=== PATIENT | male | born 1980 | race Caucasian/White ===

== ENCOUNTER 2019-08-16 21:28 | Emergency (ER) | payer MEDICAID ==
[~2019-08-16] VITALS: Ht 177.8 cm; Wt 100.0 kg
[2019-08-16 21:33] VITALS: Ht 177.8 cm; Wt 100.0 kg
[2019-08-16] MEDS ORDERED: HYDROXYZINE (21:34)
[2019-08-16] MEDS ORDERED: ZOLOFT (21:34)
[2019-08-16 21:58] LABS: BASOPHILS 0.1 % (0-2); EOSINOPHILS 2.2 % (0-7); HEMATOCRIT 41.5 % (42.0-54.0); HEMOGLOBIN 14.1 g/dL (13.5-17.5); IMMATURE GRANULOCYTES 0.8 % (0-5); LYMPHOCYTES 32.6 % (15-50); MCH 32.3 pg (26.0-34.0); MEAN PLATELET VOLUME 8.5 fL (7.4-10.4); MONOCYTES 9.6 % (2-11); NEUTROPHILS 54.7 % (40-80); PLATELET COUNT 222 10x3/uL (130-400); RBC 4.37 10x6/uL (4.20-6.10); RDW 13.9 % (11.5-14.5); WBC 8.5 10x3/uL (4.8-10.8)
[2019-08-16 22:02] LABS: BILIRUBIN NEGATIVE (NEGATIVE); GLUCOSE NEGATIVE (NEGATIVE); KETONE NEGATIVE (NEGATIVE); NITRITE NEGATIVE (NEGATIVE); UROBILINOGEN NORMAL (NORMAL)
[2019-08-16 22:05] LABS: CALC OSMOLALITY 276 mosm/kg (275-300); CARBON DIOXIDE 26.2 mmol/L (21.0-32.0); CHLORIDE - SERUM 101 mmol/L (98-107); GLUCOSE 100 mg/dL (74-106); POTASSIUM - SERUM 3.4 mmol/L (3.5-5.1); SODIUM 138 mmol/L (136-145); UREA NITROGEN 16 mg/dL (7-18); eGFR NON AFRICAN AMERICAN 89 mL/min (90-120)
[2019-08-16 22:10] LABS: ALBUMIN 3.8 g/dL (3.4-5.0); ALKALINE PHOSPHATASE 76 U/L (30-120); ALT (SGPT) 36 U/L (10-68); BILIRUBIN - TOTAL 0.46 mg/dL (0.2-1.3); MAGNESIUM - SERUM 1.9 mg/dL (1.8-2.4); PROTEIN - SERUM 8.1 g/dL (6.4-8.2)
[2019-08-16 22:12] LABS: UDS - AMPHET NEGATIVE QUAL (NEGATIVE); UDS - BARB NEGATIVE QUAL (NEGATIVE); UDS - BENZO NEGATIVE QUAL (NEGATIVE); UDS - COCAINE NEGATIVE QUAL (NEGATIVE); UDS - OPIATE NEGATIVE QUAL (NEGATIVE); UDS - PCP NEGATIVE QUAL (NEGATIVE); UDS - THC NEGATIVE QUAL (NEGATIVE)
[2019-08-16] MEDS ORDERED: CYCLOBENZAPRINE10 MG PO (22:35)
[2019-08-16 22:47] VITALS: BP 127/83
== END 2019-08-16 22:47 | disposition home or self-care (01) ==
LOC: D.ER 21:28
PROVIDERS: Family Medicine
DX: F41.9 Anxiety disorder, unspecified (principal); E87.6 Hypokalemia; M62.830 Muscle spasm of back; M54.5 Low back pain; G89.29 Other chronic pain

== ENCOUNTER 2019-10-30 18:41 | Emergency (ER) | payer MEDICAID ==
[~2019-10-30] VITALS: Ht 177.8 cm; Wt 90.7 kg
[~2019-10-30 18:41] MED LIST: CYCLOBENZAPRINE10 MG PO; HYDROXYZINE; ZOLOFT
[2019-10-30 19:15] VITALS: Ht 177.8 cm; Wt 90.7 kg
[2019-10-30] MEDS ORDERED: CYCLOBENZAPRINE10 MG PO (20:45)
[2019-10-30 21:40] VITALS: BP 136/88
== END 2019-10-30 19:40 | disposition home or self-care (01) ==
LOC: D.ER 18:41
DX: M79.18 Myalgia, other site (principal); F41.9 Anxiety disorder, unspecified; M54.9 Dorsalgia, unspecified; G89.29 Other chronic pain

== ENCOUNTER 2019-11-07 23:57 | Emergency (ER) | payer MEDICAID ==
[~2019-11-07] VITALS: Ht 177.8 cm; Wt 90.9 kg
[2019-11-08 00:06] VITALS: BP 131/79; Ht 177.8 cm; Wt 90.9 kg
[2019-11-08] MEDS ORDERED: STERAPRED 5MG 65 M1 PO (01:18)
== END 2019-11-08 02:16 | disposition home or self-care (01) ==
LOC: D.ER 23:57
DX: M54.32 Sciatica, left side (principal); Z76.5 Malingerer [conscious simulation]; M54.5 Low back pain; M79.671 Pain in right foot

== ENCOUNTER 2019-11-18 18:19 | Emergency (ER) | payer MEDICAID ==
[~2019-11-18] VITALS: Ht 177.8 cm; Wt 93.2 kg
[~2019-11-18 18:19] MED LIST changes: +STERAPRED 5MG 65 M1 PO
[2019-11-18 18:25] VITALS: BP 128/102; Ht 177.8 cm; Wt 93.2 kg
[2019-11-18] MEDS ORDERED: ZOLOFT50 MG PO (18:27)
[2019-11-18] MEDS ORDERED: VOLTAREN100 GM TOPICAL (19:55)
== END 2019-11-18 20:01 | disposition home or self-care (01) ==
LOC: D.ER 18:19
DX: M72.2 Plantar fascial fibromatosis (principal); M54.5 Low back pain

== ENCOUNTER 2020-06-20 23:10 | Emergency (ER) | payer MEDICAID ==
[~2020-06-20] VITALS: Ht 177.8 cm; Wt 90.9 kg
[~2020-06-20 23:10] MED LIST changes: +VOLTAREN100 GM TOPICAL; +ZOFRAN ODT4 MG/UDTAB PO; +ZOLOFT50 MG PO
[2020-06-20 23:14] VITALS: Ht 177.8 cm; Wt 90.9 kg
[2020-06-21] MEDS ORDERED: DOXYCYCLINE HY100 M2 PO (00:22)
[2020-06-21] MEDS ORDERED: HYDROCODON-ACE1 EAC7 PO (00:22)
[2020-06-21 00:35] LABS: BILIRUBIN NEGATIVE (NEGATIVE); KETONE NEGATIVE (NEGATIVE); NITRITE NEGATIVE (NEGATIVE); UROBILINOGEN NORMAL mg/dL (< 2)
[2020-06-21 01:52] VITALS: BP 107/67
== END 2020-06-21 01:55 | disposition home or self-care (01) ==
LOC: D.ER 23:10
PROVIDERS: Emergency Medicine
DX: N50.811 Right testicular pain (principal); N45.1 Epididymitis

== ENCOUNTER 2020-07-29 00:58 | Emergency (ER) | payer BC ==
[~2020-07-29] VITALS: Ht 177.8 cm; Wt 118.2 kg
[~2020-07-29 00:58] MED LIST changes: +DOXYCYCLINE HY100 M2 PO; +HYDROCODON-ACE1 EAC7 PO
[2020-07-29 01:00] VITALS: Ht 177.8 cm; Wt 118.2 kg
[2020-07-29 01:27] LABS: BASOPHILS 0.2 % (0-2); BILIRUBIN NEGATIVE (NEGATIVE); EOSINOPHILS 2.3 % (0-7); HEMATOCRIT 46.8 % (42.0-54.0); HEMOGLOBIN 16.4 g/dL (13.5-17.5); IMMATURE GRANULOCYTES 0.8 % (0-5); KETONE NEGATIVE (NEGATIVE); LYMPHOCYTE ABS# 3.58 10x3/uL (1.32-3.57); LYMPHOCYTES 35.5 % (15-50); MCH 31.9 pg (26.0-34.0); MCV 91.1 fL (80.0-100.0); MEAN PLATELET VOLUME 8.8 fL (7.4-10.4); MONOCYTES 7.7 % (2-11); NEUTROPHILS 53.5 % (40-80); NITRITE NEGATIVE (NEGATIVE); PLATELET COUNT 242 10x3/uL (130-400); RBC 5.14 10x6/uL (4.20-6.10); RDW 12.7 % (11.5-14.5); UROBILINOGEN NORMAL mg/dL (< 2); WBC 10.1 10x3/uL (4.8-10.8)
[2020-07-29 01:48] LABS: CALC OSMOLALITY 277 mosm/kg (275-300); CALCIUM 9.2 mg/dL (8.5-10.1); CARBON DIOXIDE 26.5 mmol/L (21.0-32.0); CHLORIDE - SERUM 103 mmol/L (98-107); GLUCOSE 86 mg/dL (74-106); POTASSIUM - SERUM 4.2 mmol/L (3.5-5.1); SODIUM 140 mmol/L (136-145); UREA NITROGEN 13 mg/dL (7-18); eGFR NON AFRICAN AMERICAN 89 mL/min (90-120)
[2020-07-29 01:54] LABS: ALBUMIN 4.1 g/dL (3.4-5.0); ALKALINE PHOSPHATASE 81 U/L (30-120); ALT (SGPT) 33 U/L (10-68); BILIRUBIN - TOTAL 0.42 mg/dL (0.2-1.3); PROTEIN - SERUM 8.8 g/dL (6.4-8.2)
[2020-07-29 01:56] LABS: INR 1.05 (0.85-1.17); PROTIME 12.6 SECONDS (11.6-15.0)
[2020-07-29] MEDS ORDERED: HYDROCODONE-AC1 EAC2 PO (03:05)
[2020-07-29] MEDS ORDERED: DOXYCYCLINE HY100 M2 PO (03:06)
[2020-07-29 04:33] VITALS: BP 141/81
== END 2020-07-29 04:34 | disposition home or self-care (01) ==
LOC: D.ER 00:58
PROVIDERS: Family Medicine
DX: N45.1 Epididymitis (principal); M54.9 Dorsalgia, unspecified; R10.30 Lower abdominal pain, unspecified

== ENCOUNTER 2020-08-12 10:00 | Emergency (ER) | payer BC ==
[~2020-08-12] VITALS: Ht 177.8 cm; Wt 95.5 kg
[~2020-08-12 10:00] MED LIST changes: +HYDROCODONE-AC1 EAC2 PO
[2020-08-12 10:01] VITALS: BP 119/78; Ht 177.8 cm; Wt 95.5 kg
[2020-08-12 11:27] LABS: BILIRUBIN NEGATIVE (NEGATIVE); KETONE NEGATIVE (NEGATIVE); NITRITE NEGATIVE (NEGATIVE); UROBILINOGEN NORMAL mg/dL (< 2)
[2020-08-12] MEDS ORDERED: PREDNISONE20 MG PO (12:13)
[2020-08-12] MEDS ORDERED: CYCLOBENZAPRINE10 MG PO (12:13)
[2020-08-13 15:12] LABS: CHLAMYDIA TRACHOMATIS, NAA Negative (Negative)
== END 2020-08-12 12:24 | disposition home or self-care (01) ==
LOC: D.ER 10:00
PROVIDERS: Student in an Organized Health Care Education/Training Program
DX: M54.5 Low back pain (principal)

== ENCOUNTER 2020-08-16 23:08 | Emergency (ER) | payer BC ==
[~2020-08-16] VITALS: Ht 177.8 cm; Wt 93.2 kg
[~2020-08-16 23:08] MED LIST changes: +PREDNISONE20 MG PO
[2020-08-16 23:16] VITALS: Ht 177.8 cm; Wt 93.2 kg
[2020-08-17 00:34] VITALS: BP 140/91
== END 2020-08-17 00:34 | disposition home or self-care (01) ==
LOC: D.ER 23:08
DX: K02.9 Dental caries, unspecified (principal)

== ENCOUNTER 2020-08-30 11:05 | Emergency (ER) | payer BC ==
[~2020-08-30] VITALS: Ht 177.8 cm; Wt 93.2 kg
[2020-08-30 11:09] VITALS: BP 148/100; Ht 177.8 cm; Wt 93.2 kg
[2020-08-30] MEDS ORDERED: ORAL ANALGESIC9 GM TOPICAL (11:20)
[2020-08-30] MEDS ORDERED: CLEOCIN HCL300 MG PO (11:20)
== END 2020-08-30 12:23 | disposition home or self-care (01) ==
LOC: D.ER 11:05
DX: K02.9 Dental caries, unspecified (principal); K08.89 Other specified disorders of teeth and supporting structures

== ENCOUNTER 2020-09-01 06:07 | Emergency (ER) | payer BC ==
[~2020-09-01] VITALS: Ht 177.8 cm; Wt 93.2 kg
[~2020-09-01 06:07] MED LIST changes: +CLEOCIN HCL300 MG PO; +ORAL ANALGESIC9 GM TOPICAL
[2020-09-01 06:14] VITALS: Ht 177.8 cm; Wt 93.2 kg
[2020-09-01] MEDS ORDERED: HYDROCODON-ACE1 EAC7 PO (06:25)
[2020-09-01 06:29] VITALS: BP 168/94
== END 2020-09-01 06:30 | disposition home or self-care (01) ==
LOC: D.ER 06:07
DX: K04.7 Periapical abscess without sinus (principal); K02.9 Dental caries, unspecified

== ENCOUNTER 2020-09-03 12:18 | Emergency (ER) | payer BC ==
[~2020-09-03] VITALS: Ht 177.8 cm; Wt 95.5 kg
[2020-09-03 12:33] VITALS: Ht 177.8 cm; Wt 95.5 kg
[2020-09-03 13:19] LABS: BASOPHILS 0.7 % (0-2); EOSINOPHILS 2.5 % (0-7); HEMATOCRIT 37.6 % (42.0-54.0); LYMPHOCYTES 25.4 % (15-50); MCH 31.5 pg (26.0-34.0); MCHC 34.7 g/dL (31.0-37.0); MCV 90.8 fL (80.0-100.0); MEAN PLATELET VOLUME 6.1 fL (7.4-10.4); MONOCYTES 6.5 % (2-11); NEUTROPHILS 64.9 % (40-80); PLATELET COUNT 260 10x3/uL (130-400); RBC 4.14 10x6/uL (4.20-6.10); RDW 13.7 % (11.5-14.5); WBC 8.6 10x3/uL (4.8-10.8)
[2020-09-03 13:26] LABS: CALC OSMOLALITY 276 mosm/kg (275-300); CALCIUM 8.9 mg/dL (8.5-10.1); CARBON DIOXIDE 28.1 mmol/L (21.0-32.0); CHLORIDE - SERUM 102 mmol/L (98-107); CREATININE - SERUM 0.8 mg/dL (0.6-1.3); GLUCOSE 94 mg/dL (74-106); POTASSIUM - SERUM 3.7 mmol/L (3.5-5.1); SODIUM 138 mmol/L (136-145); UREA NITROGEN 14 mg/dL (7-18); eGFR NON AFRICAN AMERICAN > 90 mL/min (90-120)
[2020-09-03 13:32] LABS: ALBUMIN 3.6 g/dL (3.4-5.0); ALKALINE PHOSPHATASE 72 U/L (30-120); ALT (SGPT) 31 U/L (10-68); BILIRUBIN - TOTAL 0.87 mg/dL (0.2-1.3); PROTEIN - SERUM 7.5 g/dL (6.4-8.2)
[2020-09-03 15:36] VITALS: BP 143/94
== END 2020-09-03 15:37 | disposition home or self-care (01) ==
LOC: D.ER 12:18
PROVIDERS: Emergency Medicine
DX: K08.89 Other specified disorders of teeth and supporting structures (principal); K04.7 Periapical abscess without sinus

== ENCOUNTER 2020-09-08 12:14 | Emergency (ER) | payer BC ==
[~2020-09-08] VITALS: Ht 177.8 cm; Wt 95.5 kg
[2020-09-08 12:17] VITALS: BP 149/100; Ht 177.8 cm; Wt 95.5 kg
[2020-09-08] MEDS ORDERED: ZOFRAN ODT4 MG/UDTAB PO (12:59)
== END 2020-09-08 13:06 | disposition home or self-care (01) ==
LOC: D.ER 12:14
DX: K08.89 Other specified disorders of teeth and supporting structures (principal); K04.7 Periapical abscess without sinus